=== PATIENT | female | born 1945 | race Caucasian/White ===

== ENCOUNTER → 2018-02-22 | Outpatient (CLI) | payer MEDICARE, BC ==
[~2018-02-22] MED LIST: ALPHAGAN OP; ATENOLOL25 MG PO; ATORVASTATIN; LORTAB 5/500 501 TAB PO
== END ==
LOC: MC.RAD 11:39
DX: Z12.31 Encounter for screening mammogram for malignant neoplasm of breast (principal)

== ENCOUNTER → 2019-04-04 | Outpatient (CLI) | payer MEDICARE, BC | LOC: MC.RAD 09:23 | DX: Z12.31 Encounter for screening mammogram for malignant neoplasm of breast (principal) ==